=== PATIENT | female | born 1965 | race Caucasian/White ===

== ENCOUNTER 2019-07-06 23:07 | Emergency (ER) | payer BC, SELFPAY ==
[2019-07-06 23:08] VITALS: BP 159/111; PULSE 78; RESP 16; TEMP 36.2; O2SAT 97; BMI 30.9
--- NOTE | 2019-07-06 23:21 | ED_ITS ---
HPI - Wound/Laceration General: Chief Complaint: Wound/Laceration Stated Complaint: head lac Time Seen by Provider: 07/06/19 23:12 Source: patient Mode of arrival: ambulatory Limitations: other (intoxicated) History of Present Illness: HPI narrative: Patient is a 54-year-old female who presents to ED today with complaints of a facial laceration that she sustained after she fell on her front porch. Patient admittedly is intoxicated. She states she was taking her dogs outside when she accidentally fell forward landing on her face. She denies LOC. She is reporting 10 out of 10 pain/headache. Patient's last tetanus is unknown. No other injury sustained during the fall. Onset (ago): hour(s) Location: face Place: home Patient tetanus UTD: No Context: accidental Associated symptoms: Reports other (headache) Review of Systems Eyes: Denies: change in vision, blurry vision, photophobia, floaters or seeing flashes Card: Denies: chest pain Resp: Denies: shortness of breath Musc: Denies: neck pain, back pain or extremity pain Skin/Breast: Reports: other (laceration) Neuro: Reports: headache; Denies: numbness in extremities, weakness in extremities, changes in sensation, lack of coordination or dizziness PFSH ED PFSH: Social History Smoking and tobacco status: current every day smoker Physical Exam Const: COMMON NORMALS: no apparent distress, average body habitus, oriented x3, healthy appearing, alert and well nourished GENERAL APPEARANCE: odor of alcohol detected ORIENTATION/CONSCIOUSNESS: Yes oriented to person, Yes oriented to place and Yes oriented to time OTHER: intoxicated HENMT: COMMON NORMALS: normocephalic, head/scalp atraumatic, hearing grossly normal bilaterally, external ears normal, EAC's normal, TM's normal bilaterally, external nose normal, nasal mucous membranes and turbinates normal, moist oral mucous membranes, oropharynx normal, dentition normal and gingiva normal HEAD & SCALP: normal to inspection, normocephalic and atraumatic FACE & SINUS: other (4.0 cm laceration just above R eyebrow ) NOSE: external nose normal and nasal mucous membranes and turbinates normal EXTERNAL EAR: Yes external ears normal EXTERNAL AUDITORY CANAL: EAC's normal TYMPANIC MEMBRANE: TM's normal bilaterally MOUTH: oral and palatal mucosa normal, lip normal and tongue normal THROAT: posterior oropharynx normal, tonsils normal and uvula midline Eye: COMMON NORMALS: PERRL and EOMs intact bilaterally PUPIL: Yes PERRL OTHER: pt has mild subconjunctival hemorrhage to medial aspect of R eye; no globe injury; EOMs intact/no gaze palsy/entrapment Neck/C-Spine: COMMON NORMALS: full ROM CERVICAL SPINE: No pain with cervical ROM, No cervical spine tenderness and No paracervical muscle tenderness Back/Pelvis: COMMON NORMALS: thoracic and lumbar spine normal to inspection, no thoracic nor lumbar tenderness and thoraco-lumbar ROM normal Extremity: COMMON NORMALS: normal to inspection Neuro: LAMBERT COMA SCALE: document GCS findings [place] coma scale eye opening: Spontaneous Lambert coma scale verbal response: Orientated Lambert coma scale motor response: Obey commands [place] coma scale total score: 15 COMMON NORMALS: oriented x3, moves all extremities, no focal motor deficits, no sensory deficits noted and gait normal SENSORIUM/ORIENTATION: Yes alert, Yes oriented to person, Yes oriented to place and Yes oriented to time Procedures Laceration Laceration 1: Site: face Side (If applicable): right Size (cm): 4.0 Description: linear Depth: simple, single layer Local Anesthetic: lidocaine 1% and with epi Amount of anesthesia used (mL): 2.0 Pre-repair: wound explored and irrigated extensively Skin layer closed with: nylon Size (cm): 4-0 Number of sutures: 6 Technique: simple, interrupted Course Vital Signs: Vital signs: Vital Signs Temperature 97.2 F L 07/06/19 23:08 Pulse Rate 78 07/06/19 23:08 Respiratory Rate 16 07/06/19 23:08 Blood Pressure 159/111 07/06/19 23:08 Pulse Oximetry 97 07/06/19 23:08 MDM - Wound/Laceration Imaging Data^: CT Head: Radiologist's impression: [address] [address] [address] Scan Report Signed Patient: Ely Roy Unit #: [id number] : 1965 Age/Sex: 54 / F ADM Date: 07/06/19 Loc: ER Room/Bed: Attending Dr: Ordering Provider/Ordering MD: Cristina Cruz Date of Service: 07/06/19 Procedure(s): CT head wo con* [id number] Accession Number(s): [id number] Report Number: [id number] PROCEDURE INFORMATION: Exam: CT Head Without Contrast Exam date and time: 07/06/2019 11:36 PM Age: 54 years old Clinical indication: Injury or trauma; Fall; Additional info: Fall/facial laceration TECHNIQUE: Imaging protocol: Computed tomography of the head without contrast. Total DLP: 809.05 mGy-cm Radiation optimization: All CT scans at this facility use at least one of these dose optimization techniques: automated exposure control; mA and/or kV adjustment per patient size (includes targeted exams where dose is matched to clinical indication); or iterative reconstruction. COMPARISON: No relevant prior studies available. FINDINGS: Brain: Normal. No hemorrhage. Unremarkable white matter. No mass effect. Ventricles: Normal. No ventriculomegaly. Bones/joints: Unremarkable. No acute fracture. Sinuses: Visualized sinuses are unremarkable. No fluid levels. Mastoid air cells: Visualized mastoid air cells are well aerated. Soft tissues: Unremarkable. CT/CT head wo con* [id number] IMPRESSION: No acute intracranial abnormality. Radiation Dose CTDIVOL = (mGy): DLP = 809.05 (mGy-cm) Dictated By: Jhonatan Littlejohn MD Signed By: Jhonatan Littlejohn MD Signed Date/Time: 07/07/1942 DD/ CT cervical : Radiologist's impression: [place] [address] CT Scan Report Signed Patient: Ely Roy Unit #: [id number] : 1965 Age/Sex: 54 / F ADM Date: 07/06/19 Loc: ER Room/Bed: Attending Dr: Ordering Provider/Ordering MD: Cristina Cruz Date of Service: 07/06/19 Procedure(s): CT cervical spin wo con* [id number] Accession Number(s): [id number] Report Number: [id number] PROCEDURE INFORMATION: Exam: CT Cervical Spine Without Contrast Exam date and time: 07/06/2019 11:36 PM Age: 54 years old Clinical indication: Injury or trauma; Fall; Initial encounter; Blunt trauma; Additional info: Fall; ETOH intoxication TECHNIQUE: Imaging protocol: Computed tomography images of the cervical spine without contrast. Total DLP: 584.05 mGy-cm Radiation optimization: All CT scans at this facility use at least one of these dose optimization techniques: automated exposure control; mA and/or kV adjustment per patient size (includes targeted exams where dose is matched to clinical indication); or iterative reconstruction. COMPARISON: No relevant prior studies available. FINDINGS: Vertebrae: No acute fracture. Normal alignment. Discs/Spinal canal/Neural foramina: A diffuse loss of disc height is seen within the cervical spine most prominently at the C5-C6 level compatible with degenerative disc disease. Soft tissues: Unremarkable. Lungs: Lung apices are normal. CT/CT cervical spin wo con* [id number] IMPRESSION: There are no acute osseous findings. Radiation Dose CTDIVOL = (mGy): DLP = 584.05 (mGy-cm) Dictated By: Jhonatan Littlejohn MD Signed By: Jhonatan Littlejohn MD Signed Date/Time: 07/07/1944 DD/ CT facial : Radiologist's impression: [place] [address] CT Scan Report Signed Patient: Ely Roy Unit #: [id number] : 1965 Age/Sex: 54 / F ADM Date: 07/06/19 Loc: ER Room/Bed: Attending Dr: Ordering Provider/Ordering MD: Cristina Cruz Date of Service: 07/06/19 Procedure(s): CT facial bones wo con* [id number] Accession Number(s): [id number] Report Number: [id number] PROCEDURE INFORMATION: Exam: CT Maxillofacial Without Contrast Exam date and time: 07/06/2019 11:36 PM Age: 54 years old Clinical indication: Injury or trauma; Fall; Initial encounter; Blunt trauma (contusions or hematomas); Orbit/periorbital; Right; Additional info: R superior orbital laceration; Fall TECHNIQUE: Imaging protocol: Computed tomography images of the face without contrast. Total DLP: 701.05 mGy-cm Radiation optimization: All CT scans at this facility use at least one of these dose optimization techniques: automated exposure control; mA and/or kV adjustment per patient size (includes targeted exams where dose is matched to clinical indication); or iterative reconstruction. COMPARISON: No relevant prior studies available. FINDINGS: Orbits: Orbits are normal. Globes are unremarkable. Bones/joints: No acute fracture. Sinuses: Normal. No air-fluid levels. Soft tissues: There is some soft tissue swelling seen in the right infraorbital and superior orbital regions. CT/CT facial bones wo con* [id number] IMPRESSION: There are no acute osseous findings. Radiation Dose CTDIVOL = (mGy): DLP = 701.05 (mGy-cm) Dictated By: Jhonatan Littlejohn MD Signed By: Jhonatan Littlejohn MD Signed Date/Time: 07/07/1945 DD/ Discharge Plan Discharge Patient Disposition: Home, Self-Care Clinical Impression: Acute alcohol intoxication Qualifiers: Complication of substance-induced condition: uncomplicated Qualified Code(s): F10.920 - Alcohol use, unspecified with intoxication, uncomplicated Fall Qualifiers: Encounter type: initial encounter Qualified Code(s): W19.XXXA - Unspecified fall, initial encounter Facial laceration Qualifiers: Encounter type: initial encounter Qualified Code(s): S01.81XA - Laceration without foreign body of other part of head, initial encounter Condition: Stable Discharge Orders: Discharge Order (Routine); Ordered 07/07/19 Ordered By: Cristina Cruz Referrals: Jose Fernandez MD [Family Provider] - Discharge Diet: Usual diet Discharge Activity: Increase activity as tolerated Patient Instructions: Laceration (ED), Alcohol Intoxication (ED) Activity Restrictions/Additional Instructions: Keep facial wound clean with warm soap and water several times daily. Sutures may be cut out in 5 to 7 days. Monitor for signs of infection such as redness, swelling, drainage, increased pain. Stand Alone Forms: Work/School Release Coding Level of Care Code ED Internal Review And Audit Compliance for Anyag Fwd Exam Detailed
[2019-07-07] MEDS: tetanus-diphtheria tox (adult) 0.5 mL SDV IM (00:03)
[2019-07-07 01:09] VITALS: BP 146/102; PULSE 76; RESP 18; O2SAT 97
== END 2019-07-07 00:55 | disposition home or self-care (01) ==
PROVIDERS: Emergency Provider Physician Assistant; Family Provider Family Medicine
DX: S01.81XA Laceration without foreign body of other part of head, initial encounter (principal); W19.XXXA Unspecified fall, initial encounter; F10.920 Alcohol use, unspecified with intoxication, uncomplicated; Z23 Encounter for immunization
CPT/HCPCS: 12013; 12345; 70450; 70486; 72125; 90471; 90714; 99282; 99283; J2001

== ENCOUNTER 2019-09-28 11:46 | Emergency (ER) | payer BC, SELFPAY ==
[2019-09-28 12:13] VITALS: BP 177/101; PULSE 68; RESP 16; TEMP 36.8; O2SAT 98; BMI 30.9
--- NOTE | 2019-09-28 12:26 | ECG_ITS ---
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 Measurements Intervals [place] Rate: 65 P: 59 [place]: 159 QRS: 74 QRSD: 83 T: 8 QT: 386 QTc: 403 Interpretive Statements SINUS RHYTHM NONSPECIFIC T-WAVE ABNORMALITY No previous ECG available for comparison Electronically Signed On 09-28-2019 13:31:36 CDT by Lupis Floyd M.D. [id number]
--- NOTE | 2019-09-28 13:57 | XR_ITS ---
WS: [id number] PORTABLE CHEST HISTORY: cp COMPARISON: 10/07/2009 Pulmonary hyperinflation with no pneumonia. Normal vasculature. No pleural effusion or pneumothorax. Cardiac size: Normal. Mediastinum/Aorta: Normal mediastinum. No osseous abnormality seen. XR/XR chest 1V portable [id number] IMPRESSION: Chronic emphysema with no pneumonia.
[2019-09-28 14:11] LABS: Troponin(5th) Baseline 6 ng/L (0-10)
[2019-09-28 14:20] LABS: Basophils % 0.3 %; Eosinophils # 0.1 10^3/uL (0.0-0.8); Hemoglobin 14.5 g/dL (11.5-15.3); Lymphocytes # 2.2 10^3/uL (0.8-4.8); Lymphocytes % 35.8 %; Mean Corpuscular Hemoglobin 32.3 pg (28.0-34.0); Mean Platelet Volume 9.9 fL (7.4-10.4); Monocytes # 0.4 10^3/uL (0.2-0.9); Monocytes % 6.2 %; Neutrophils # 3.47 10^3/uL (1.8-7.7); Neutrophils % 56.5 %; Nucleated Red Blood Cells % 0 %; Platelet Count 234 10^3/cmm (130-400); Red Blood Count 4.49 10^6/uL (4.1-5.3); Red Cell Distribution Width 12.8 % (12.1-15.1); White Blood Count 6.1 10^3/uL (4.0-10.0)
--- NOTE | 2019-09-28 14:25 | ED_ITS ---
HPI - Chest Pain General: Chief Complaint: Chest Pain Stated Complaint: CP Time Seen by Provider: 09/28/19 13:32 History of Present Illness: HPI narrative: Patient presents with a 3 day history of burning and squeezing chest pain that radiates to her left arm and down to the elbow. There is minimal associated symptoms. Very minimal shortness of breath, slight nausea and only occasional diaphoresis. Patient has no cardiac history. Patient denies any exacerbating or relieving factors. MD complaint: chest pain, chest heaviness and chest discomfort Onset (ago): day(s) Timing of current episode: constant Prior episodes: No Onset: during rest Pain location: substernal Pain radiation: left arm Severity: moderate Quality: tightness, heaviness and burning Relieving factors: nothing Exacerbating factors: nothing Associated symptoms: Reports diaphoresis, dyspnea and nausea Review of Systems General: Reports: 10 or more systems reviewed and unremarkable except in HPI and below Const: Reports: diaphoresis Resp: Reports: dyspnea GI: Reports: nausea PFSH ED PFSH: Social History Smoking and tobacco status: current every day smoker Physical Exam Const: COMMON NORMALS: no acute distress, healthy appearing and well nourished GENERAL APPEARANCE: cooperative and well developed HENMT: COMMON NORMALS: normocephalic and atraumatic HEAD & SCALP: normal to inspection, normocephalic and atraumatic Eye: GENERAL EYE: appearance normal, both eyes and all related structures Neck/C-Spine: COMMON NORMALS: full ROM, no lymphadenopathy and no meningeal signs GENERAL: Yes normal visual inspection CERVICAL SPINE: Yes cervical ROM normal and Yes normal cervical lordosis Chest: COMMONS NORMALS: normal inspection of the chest and normal palpation of entire chest wall Resp: COMMON NORMALS: normal respiratory effort, clear to auscultation bilaterally and percussion normal AUSCULTATION: clear to auscultation bilaterally PERCUSSION: percussion normal Cardio: COMMON NORMALS: regular rate, regular rhythm, S1 normal heart sound present and S2 normal heart sound present JUGULAR VENOUS DISTENTION: no JVD PALPATION: normal PMI RATE: regular rate RHYTHM: regular rhythm HEART SOUNDS: S1 normal heart sound present and S2 normal heart sound present GI: COMMON NORMALS: Soft to palpation and No hepatosplenomegaly present INSPECTION: Yes normal to inspection PALPATION: Yes Soft to palpation and Yes No hepatosplenomegaly present PERCUSSION: normal to percussion : COMMON NORMALS: Yes no CVA tenderness BLADDER/KIDNEY EXAM: Yes no CVA tenderness Back/Pelvis: COMMON NORMALS: no CVA tenderness, thoracic and lumbar spine normal to inspection and thoraco-lumbar ROM normal Extremity: COMMON NORMALS: normal to inspection, full ROM and capillary refill normal Neuro: MENINGEAL SIGNS: Yes no meningeal signs Skin: COMMON NORMALS: no rashes or lesions noted, no wounds and turgor normal GENERAL SKIN EXAM: no rashes or lesions noted, elasticity normal and turgor normal LESIONS: no lesions RASHES: no rashes TRAUMA: no lacerations or abrasions HAIR: normal NAILS: normal Course Vital Signs: Vital signs: Vital Signs Temperature 98.2 F 09/28/19 12:13 Pulse Rate 65 09/28/19 15:31 Respiratory Rate 18 09/28/19 15:31 Blood Pressure 156/98 09/28/19 15:31 Pulse Oximetry 96 09/28/19 15:31 MDM - Chest Pain Lab Data: Labs: Lab Results 09/28/19 09/28/19 09/28/19 Range/Units 13:48 13:48 13:48 WBC 6.1 (4.0-10.0) 10^3/ uL RBC 4.49 (4.1-5.3) 10^6/u L Hgb 14.5 (11.5-15.3) g/dL Hct 44.0 (37.0-47.0) % MCV 98.0 (81-99) fL MCH 32.3 (28.0-34.0) pg MCHC 33.0 (30.0-36.0) g/dL RDW 12.8 (12.1-15.1) % Plt Count 234 (130-400) 10^3/c mm MPV 9.9 (7.4-10.4) fL Neut % (Auto) 56.5 % Lymph % (Auto) 35.8 % [place] % (Auto) 6.2 % Eos % (Auto) 1.0 % Baso % (Auto) 0.3 % Neut # (Auto) 3.47 (1.8-7.7) 10^3/u L Lymph # (Auto) 2.2 (0.8-4.8) 10^3/u L [place] # (Auto) 0.4 (0.2-0.9) 10^3/u L Eos # (Auto) 0.1 (0.0-0.8) 10^3/u L Baso # (Auto) 0.0 (0.0-0.1) 10^3/u L Nucleated RBC % (a uto) 0 % Nucleated RBCs # 0.0 /100WBC D-Dimer (0-0.59) ug/mIFE U Sodium 138 (136-145) mmol/L Potassium 4.0 (3.5-5.1) mmol/L Chloride 101 (98-107) mmol/L Carbon Dioxide 26 (22-29) mmol/L Anion Gap 15.0 (5-19) BUN 9 (6-20) mg/dL Creatinine 0.6 (0.5-0.9) mg/dL GFR Calculation 103.8 (90-130) mL/min Glucose 100 (65-115) mg/dL Calculated Osmolal ity 282 L (285-295) mOsm/k g Calcium 10.1 (8.5-10.5) mg/dL Total Bilirubin 0.3 (0.15-1.2) mg/dL AST 29 (0-32) U/L ALT 25 (0-33) U/L Alkaline Phosphata se 84 (35-105) IU/L Troponin T Baselin e 6 (0-10) ng/L Troponin T 120 Min [place] (0-10) ng/L NT-Pro-B Natriuret Pep 12 (0-125) pg/mL Total Protein 7.4 (6.6-8.7) g/dL Albumin 4.8 (3.5-5.2) g/dL Globulin 2.6 (1.3-4.6) g/dL 09/28/19 09/28/19 Range/Units 13:48 15:57 WBC (4.0-10.0) 10^3/ uL RBC (4.1-5.3) 10^6/u L Hgb (11.5-15.3) g/dL Hct (37.0-47.0) % MCV (81-99) fL MCH (28.0-34.0) pg MCHC (30.0-36.0) g/dL RDW (12.1-15.1) % Plt Count (130-400) 10^3/c mm MPV (7.4-10.4) fL Neut % (Auto) % Lymph % (Auto) % [place] % (Auto) % Eos % (Auto) % Baso % (Auto) % Neut # (Auto) (1.8-7.7) 10^3/u L Lymph # (Auto) (0.8-4.8) 10^3/u L [place] # (Auto) (0.2-0.9) 10^3/u L Eos # (Auto) (0.0-0.8) 10^3/u L Baso # (Auto) (0.0-0.1) 10^3/u L Nucleated RBC % (a uto) % Nucleated RBCs # /100WBC D-Dimer 0.09 (0-0.59) ug/mIFE U Sodium (136-145) mmol/L Potassium (3.5-5.1) mmol/L Chloride (98-107) mmol/L Carbon Dioxide (22-29) mmol/L Anion Gap (5-19) BUN (6-20) mg/dL Creatinine (0.5-0.9) mg/dL GFR Calculation (90-130) mL/min Glucose (65-115) mg/dL Calculated Osmolal ity (285-295) mOsm/k g Calcium (8.5-10.5) mg/dL Total Bilirubin (0.15-1.2) mg/dL AST (0-32) U/L ALT (0-33) U/L Alkaline Phosphata se (35-105) IU/L Troponin T Baselin e (0-10) ng/L Troponin T 120 Min [place] 6.00 (0-10) ng/L NT-Pro-B Natriuret Pep (0-125) pg/mL Total Protein (6.6-8.7) g/dL Albumin (3.5-5.2) g/dL Globulin (1.3-4.6) g/dL Discharge Plan Discharge Patient Disposition: Home, Self-Care Clinical Impression: Atypical chest pain, Esophagitis Condition: Stable Prescriptions: New Carafate 100 mg/mL suspension 1 gm PO Q6H 7 Days Qty: 280 RF: 0 No Action Tylenol Extra Strength 500 mg Tablet 1,000 mg PO BID RF: 0 Stool Softener 100 mg Capsule 100 mg PO BID RF: 0 Synthroid 200 mcg tablet See Rx Instructions .ROUTE .COMPLEX RF: 0 lisinopril 5 mg tablet 5 mg PO DAILY RF: 0 Nexium 20 mg Capsule,Delayed Release(Dr/Ec) 20 mg PO DAILY RF: 0 metoprolol tartrate 25 mg tablet 12.5 mg PO BID RF: 0 28 mg iron- 800 mcg Tablet 1 tab PO DAILY RF: 0 Psyllium Tab 1 tab PO BID RF: 0 Discharge Orders: Discharge Order (Routine); Ordered 09/28/19 Ordered By: Otf Rubin Referrals: Jose Fernandez MD [Primary Care Provider] - Coding Level of Care Code ED Shank Rander for Chg Fwd Exam Comprehensive
--- NOTE | 2019-09-28 14:26 | ECG_ITS ---
[facility] Test Date: 2019-09-28 Pat Name: Ely Roy Department: Room: Gender: Female [employer]: : 1965 Requested By: Peng Chery Order Number: [id number] Hemant MD: Lupis Floyd M.D. Measurements Intervals [place] Rate: 65 P: 63 [place]: 162 QRS: 70 QRSD: 80 T: 36 QT: 380 QTc: 395 Interpretive Statements SINUS RHYTHM Compared to ECG 09/28/2019 12:08:01 T-wave abnormality no longer present Electronically Signed On 09-28-2019 17:16:09 CDT by Lupis Floyd M.D. [id number]
[2019-09-28 14:41] LABS: Alanine Aminotransferase 25 U/L (0-33); Albumin Level 4.8 g/dL (3.5-5.2); Alkaline Phosphatase 84 IU/L (35-105); Aspartate Amino Transferase 29 U/L (0-32); Blood Urea Nitrogen 9 mg/dL (6-20); Calcium 10.1 mg/dL (8.5-10.5); Carbon Dioxide 26 mmol/L (22-29); Chloride 101 mmol/L (98-107); Globulin 2.6 g/dL (1.3-4.6); Glomerular Filtration Rate 103.8 mL/min (90-130); Glucose 100 mg/dL (65-115); NT Pro B Type Natriuretic Pept 12 pg/mL (0-125); Osmolality Calculated 282 mOsm/kg (285-295); Sodium 138 mmol/L (136-145); Total Bilirubin 0.3 mg/dL (0.15-1.2); Total Protein 7.4 g/dL (6.6-8.7)
[2019-09-28] MEDS: lidocaine 2% viscous 15 ML, aluminum-mag hydrox-simethicon 30 ML, sucralfate oral liq 1 GM PO (15:08)
[2019-09-28] MEDS: acetaminophen 500 mg Tablet 1000 MG PO (15:10)
[2019-09-28 15:23] VITALS: BP 154/90; PULSE 70; RESP 18; O2SAT 97
[2019-09-28 15:31] VITALS: BP 156/98; PULSE 65; RESP 18; O2SAT 96
[2019-09-28 15:33] LABS: D Dimer 0.09 ug/mIFEU (0-0.59)
[2019-09-28 16:16] LABS: Troponin 5 2HR Delta 0 ABS# (0-10)
[2019-09-28 16:35] VITALS: BP 156/98; PULSE 69; RESP 18; O2SAT 96
== END 2019-09-28 16:37 | disposition home or self-care (01) ==
PROVIDERS: Family Medicine; Emergency Provider Family Medicine; PCP Family Medicine
DX: R07.89 Other chest pain (principal); K20.9 Esophagitis, unspecified; F17.210 Nicotine dependence, cigarettes, uncomplicated
CPT/HCPCS: 12345; 36415; 71045; 80053; 83880; 84484; 85025; 85378; 93005; 99282; 99284

== ENCOUNTER 2021-05-05 15:14 | Outpatient (CLI) | payer BC, SELFPAY ==
--- NOTE | 2021-05-05 15:21 | MM_ITS ---
WS: [id number] BILATERAL SCREENING DIGITAL MAMMOGRAM WITH CAD HISTORY: SCREENING COMPARISON: 03/01/2019 and 02/16/2017 Bilateral CC and MLO views submitted. Computer aided detection analyzed. Breast composition: The breasts are heterogeneously dense, which may obscure small masses. No suspici ous masses, microcalcifications or architectural distortion. MM/[place] [id number] IMPRESSION: BI-RADS: 1-Negative FOLLOW UP: 1 Year Follow-up
== END 2021-05-05 15:15 | disposition home or self-care (01) ==
LOC: RADSHAW 15:19
PROVIDERS: PCP Family Medicine; Visit Provider Family Medicine
DX: Z12.31 Encounter for screening mammogram for malignant neoplasm of breast (principal)
CPT/HCPCS: 77067

== ENCOUNTER 2021-05-12 09:22 | Outpatient (CLI) | payer BC, SELFPAY ==
--- NOTE | 2021-05-12 09:36 | CT_ITS ---
WS: [id number] LDCT LUNG CANCER SCREENING TECHNIQUE: Noncontrast CT of the chest with coronal and sagittal reformatted images. CLINICAL INFORMATION: NICOTINE DEPENDENCE COMPARISON: None. DLP: 82.09 mGy.cm DIvol: Mean CTDIvol: 1.60 (mGy) All CT scans at [facility] use at least one of these dose optimization techniques: automat ed exposure control; mA and/or kV adjustment per patient size (includes targeted exams where dose is matched to clinical indication); or iterative reconstruction. FINDINGS: Both lungs are well aerated. No acute pulmonary infiltrates. A few calcified granulomas. No mediastin al or hilar lymphadenopathy. No suspicious pulmonary parenchymal abnormalities. No axillary lymphaden opathy. Coronary calcification. Aortic calcification. Small esophageal hiatal hernia. CT/CT lung screening [id number] IMPRESSION: LUNG-RADS: 2-Benign Appearance or Behavior FOLLOW UP: 12 Month: Continue annual screening with LDCT
== END 2021-05-12 09:23 | disposition home or self-care (01) ==
PROVIDERS: PCP Family Medicine; Visit Provider Family Medicine
DX: Z12.2 Encounter for screening for malignant neoplasm of respiratory organs (principal); F17.210 Nicotine dependence, cigarettes, uncomplicated
CPT/HCPCS: 71271

== ENCOUNTER 2021-09-30 15:06 | Emergency (ER) | payer BC, SELFPAY ==
[2021-09-30 15:36] VITALS: BP 174/105; PULSE 70; RESP 14; TEMP 36.7; O2SAT 97; BMI 32.4
--- NOTE | 2021-09-30 15:44 | XRR_ITS ---
PROCEDURE INFORMATION: Exam: XR Right Ankle Exam date and time: 09/30/2021 3:56 PM Age: 56 years old Clinical indication: Injury or trauma; Other: Rolled foot/ankle; Sprain or strain; Injury details: Right foot and ankle injury. Injury occurred 2 days ago. She says she was walking and accidentally rolled right foot and ankle. Since injury she has not been able to do any weightbearing. Pain improves when she is sitting or at rest and not weightbearing. Any weightbearing causes worsening pain. She has a lot of swelling and ecchymosis of her right foot. ; Additional info: Right ankle injury TECHNIQUE: Imaging protocol: Radiologic exam of the Right ankle. Views: Frontal, lateral, and oblique portable, 3 views. COMPARISON: CR XR foot RT min 3V* [id number] 09/30/2021 3:54 PM FINDINGS: Bones/joints: No definite tibiotalar joint effusion. No acute fracture. A small plantar calcaneal ossified spur is present. Soft tissues: Lateral malleolar and anterior mild soft tissue swelling. XR/XR ankle RT min 3V* [id number] IMPRESSION: 1. Possible lateral ankle ligamentous sprain. Clinical correlation is recommended. 2. No acute bony injury identified. 3. Plantar calcaneal spur.
--- NOTE | 2021-09-30 15:50 | XRR_ITS ---
PROCEDURE INFORMATION: Exam: XR Right Foot Exam date and time: 09/30/2021 3:54 PM Age: 56 years old Clinical indication: Injury or trauma; Other: Rolled foot/ankle; Sprain or strain; Injury details: Right foot and ankle injury. Injury occurred 2 days ago. She says she was walking and accidentally rolled right foot and ankle. Since injury she has not been able to do any weightbearing. Pain improves when she is sitting or at rest and not weightbearing. Any weightbearing causes worsening pain. She has a lot of swelling and ecchymosis of her right foot. ; Additional info: Rolled foot injury TECHNIQUE: Imaging protocol: Radiologic exam of the Right foot. Views: Frontal, lateral, and oblique portable, 3 views. COMPARISON: No relevant prior studies available. FINDINGS: Bones/joints: Nondisplaced extra-articular fracture base of 5th metatarsal. Short 1st proximal phalanx, normal variant. Fifth DIP joint fusion, normal variant. A small plantar calcaneal ossified spur is present. Soft tissues: Lateral proximal forefoot mild soft tissue swelling. XR/XR foot RT min 3V* [id number] IMPRESSION: 1. Acute Gupta fracture base of 5th metatarsal. 2. Plantar calcaneal spur.
--- NOTE | 2021-09-30 15:51 | ED_ITS ---
Documented by User: NELSON Harrell 09/30/21 17:02 HPI - Extremity Problem General: Chief complaint: Extremity Injury, Lower Stated complaint: right foot injury Time Seen by Provider: 09/30/21 15:47 History of Present Illness: Patient is a 56-year-old female comes to the ED with right foot and ankle injury. Injury occurred 2 days ago. She says she was walking and accidentally rolled right foot and ankle. Since injury she has not been able to do any weightbearing. Pain improves when she is sitting or at rest and not weightbearing. Any weightbearing causes worsening pain. She has a lot of swelling and ecchymosis of her right foot. Patient took some Tylenol earlier today to help with pain. Associated symptoms: Deny chest pain, fever(s) or rash Review of Systems 2 Const: Denies: fever(s), chills or fatigue Eyes: Denies: change in vision or eye discomfort ENMT: Denies: throat pain, odynophagia, nasal discharge or nasal congestion Card: Denies: chest pain, palpitations, edema, swelling of feet/ankles, dyspnea on exertion or orthopnea Resp: Denies: dyspnea, productive cough or non-productive cough GI: Denies: abdominal pain, nausea, vomiting, diarrhea, constipation or hematochezia : Denies: flank pain, dysuria or hematuria Musc: Reports: extremity pain (Right foot and ankle) and extremity swelling (Right foot and ankle); Denies: neck pain or back pain Skin/Breast: Denies: rash or new lesions Neuro: Denies: headache(s), numbness in extremities or weakness in extremities [facility] ED PFSH: Medical History No pertinent family history Surgical History No pertinent past surgical history Social History Smoking and tobacco status: current every day smoker Physical Exam Const: COMMON NORMALS: patient oriented x3 and alert GENERAL APPEARANCE: cooperative HENMT: COMMON NORMALS: normocephalic HEAD & SCALP: normocephalic MOUTH: Normal oral and palatal mucosa present THROAT: posterior oropharynx normal and uvula midline Neck/C-Spine: COMMON NORMALS: supple GENERAL: Yes normal visual inspection Resp: COMMON NORMALS: normal respiratory effort, No retractions, No use of accessory muscles and clear to auscultation bilaterally AUSCULTATION: clear to auscultation bilaterally Cardio: COMMON NORMALS: regular rate, regular rhythm, S1 normal heart sound present, S2 normal heart sound present, No gallops present (Cardio), No clicks present (Cardio), No murmurs present (Cardio) and Peripheral pulses 2+ throughout RATE: regular rate RHYTHM: regular rhythm HEART SOUNDS: S1 normal heart sound present and S2 normal heart sound present PERIPHERAL PULSES: Peripheral pulses 2+ throughout GI: COMMON NORMALS: Normal to inspection, nondistended, normoactive bowel sounds present, Soft to palpation, non-tender and no masses PALPATION: Yes Soft to palpation : COMMON NORMALS: Yes no CVA tenderness BLADDER/KIDNEY EXAM: Yes no CVA tenderness Back/Pelvis: COMMON NORMALS: no CVA tenderness Extremity: NARRATIVE EXTREMITY EXAM: Right foot?significant swelling and ecchymosis throughout midfoot. Tenderness over midfoot. No tenderness over lateral or medial malleolus. Limited range of motion in ankle and foot due to pain. Neurovascular tact distally. Neuro: COMMON NORMALS: patient oriented x3 and moves all extremities SENSORIUM/ORIENTATION: Yes alert Skin: GENERAL SKIN EXAM: dry skin Course Vital Signs: Vital signs: Vital Signs Temperature 98.1 F 09/30/21 15:36 Pulse Rate 70 09/30/21 15:36 Respiratory Rate 14 09/30/21 15:36 Blood Pressure 174/105 09/30/21 15:36 Pulse Oximetry 97 09/30/21 15:36 MDM - Extremity (Nontraumatic) Medical Decision Making Patient is a 56-year-old female comes to the ED with right foot and ankle injury. Injury occurred 2 days ago. She says she was walking and accidentally rolled right foot and ankle. Right foot?significant swelling and ecchymosis throughout midfoot. Tenderness over midfoot. No tenderness over lateral or medial malleolus. Limited range of motion in ankle and foot due to pain. Neurovascular tact distally. X-ray of right ankle and right foot showed acute Gupta fracture the base of fifth metatarsal. Patient was put in a posterior leg splint and discharged home with crutches. I placed an order with case management for patient be referred to Dr. Augustin the rug layer for further evaluation. She was discharged home with a prescription for [place] for pain. Return to ED precautions given. Patient understood and agreed with plan. Lab Data Radiology Impressions Ankle X-Ray 09/30/21 15:44 IMPRESSION: 1. Possible lateral ankle ligamentous sprain. Clinical correlation is recommended. 2. No acute bony injury identified. 3. Plantar calcaneal spur. Foot X-Ray 09/30/21 15:50 IMPRESSION: 1. Acute Gupta fracture base of 5th metatarsal. 2. Plantar calcaneal spur. Discharge Plan Discharge Patient Disposition: Home Clinical Impression: Fracture of 5th metatarsal Qualifiers: Encounter type: initial encounter Fracture type: closed Fracture alignment: nondisplaced Laterality: right Qualified Code(s): S92.354A - Nondisplaced fracture of fifth metatarsal bone, right foot, initial encounter for closed fracture Condition: Stable Prescriptions: No Action metformin 500 mg tablet 500 mg PO BID 0RF albuterol sulfate [Ventolin HFA] 90 mcg/actuation HFA aerosol inhaler 2 puff inhalation Q6H PRN (Reason: shortness of breath or wheezing) Qty: 8.5 0RF azithromycin 250 mg tablet See Rx Instructions PO .COMPLEX Qty: 6 0RF Rx Instructions: take 500 mg today (day 1), then 250 mg for 4 days (days 2-5) PO Tylenol Extra Strength 500 mg Tablet 1,000 mg PO BID 0RF Stool Softener 100 mg Capsule 100 mg PO BID 0RF Synthroid 200 mcg tablet See Rx Instructions .ROUTE .COMPLEX 0RF Rx Instructions: 200mcg po daily except on wednesday take 100mcg lisinopril 5 mg tablet 5 mg PO DAILY 0RF Nexium 20 mg Capsule,Delayed Release(Dr/Ec) 20 mg PO DAILY 0RF metoprolol tartrate 25 mg tablet 12.5 mg PO BID 0RF 28 mg iron- 800 mcg Tablet 1 tab PO DAILY 0RF Psyllium Tab 1 tab PO BID 0RF Discharge Orders: Discharge ED (Routine); Ordered 09/30/21 Ordered By: Omi Howard Referrals: Jose Fernandez MD [Primary Care Provider] - Discharge Diet: Regular Discharge Activity: Increase activity as tolerated Patient Instructions: Fractures - Metatarsal Activity Restrictions/Additional Instructions: Follow-up with medical provider as directed. Case management should be contacting you in the next several days set up an appointment with Dr. Augustin the rug layer for further evaluation of foot fracture. Keep splint on and dry and no weightbearing until cleared by Dr. Augustin. Use crutches to help with ambulation. Take medications as prescribed. Return to the ER or your medical provider if condition worsens. Please read and understand discharge instructions. Thank you for choosing [facility] for your healthcare needs today. Please realize this is an emergency room and that we are providing you with a medical screening exam and this may not be complete and all inclusive of all the testing and or work up that you may need to determine your ailment or severity of your illness. It is very important that you follow up as instructed or that you return to the Emergency Department should you have concerns or if your condition changes or worsens in any way. Coding Level of Care Code ED [employer] for [employer] Exam Comprehensive Documented by User: Peng Escobedo DO 10/01/21 06:53 HPI - Extremity Problem General: Chief complaint: Extremity Injury, Lower Stated complaint: right foot injury Time Seen by Provider: 09/30/21 15:47 [facility] ED PFSH: Medical History No pertinent family history Surgical History No pertinent past surgical history Social History Smoking and tobacco status: current every day smoker Course Vital Signs: Vital signs: Vital Signs Temperature 98.1 F 09/30/21 15:36 Pulse Rate 70 09/30/21 15:36 Respiratory Rate 14 09/30/21 15:36 Blood Pressure 174/105 09/30/21 15:36 Pulse Oximetry 97 09/30/21 15:36 MDM - Extremity (Nontraumatic) Medical Decision Making Patient is a 56-year-old female comes to the ED with right foot and ankle injury. Injury occurred 2 days ago. She says she was walking and accidentally rolled right foot and ankle. Right foot?significant swelling and ecchymosis throughout midfoot. Tenderness over midfoot. No tenderness over lateral or medial malleolus. Limited range of motion in ankle and foot due to pain. Neurovascular tact distally. X-ray of right ankle and right foot showed acute Gupta fracture the base of fifth metatarsal. Patient was put in a posterior leg splint and discharged home with crutches. I placed an order with case management for patient be referred to Dr. Augustin the rug layer for further evaluation. She was discharged home with a prescription for [place] for pain. Return to ED precautions given. Patient understood and agreed with plan. Chart reviewed and patient discussed with midlevel. Agree with assessment and plan. Medical Records I reviewed the patient's medical records. Lab Data I reviewed the patient's lab results. Radiology Impressions Ankle X-Ray 09/30/21 15:44 IMPRESSION: 1. Possible lateral ankle ligamentous sprain. Clinical correlation is recommended. 2. No acute bony injury identified. 3. Plantar calcaneal spur. Foot X-Ray 09/30/21 15:50 IMPRESSION: 1. Acute Gupta fracture base of 5th metatarsal. 2. Plantar calcaneal spur. Discharge Plan Discharge Patient Disposition: Home Clinical Impression: Fracture of 5th metatarsal Qualifiers: Encounter type: initial encounter Fracture type: closed Fracture alignment: nondisplaced Laterality: right Qualified Code(s): S92.354A - Nondisplaced fracture of fifth metatarsal bone, right foot, initial encounter for closed fracture Condition: Stable Prescriptions: No Action metformin 500 mg tablet 500 mg PO BID 0RF albuterol sulfate [Ventolin HFA] 90 mcg/actuation HFA aerosol inhaler 2 puff inhalation Q6H PRN (Reason: shortness of breath or wheezing) Qty: 8.5 0RF azithromycin 250 mg tablet See Rx Instructions PO .COMPLEX Qty: 6 0RF Rx Instructions: take 500 mg today (day 1), then 250 mg for 4 days (days 2-5) PO Tylenol Extra Strength 500 mg Tablet 1,000 mg PO BID 0RF Stool Softener 100 mg Capsule 100 mg PO BID 0RF Synthroid 200 mcg tablet See Rx Instructions .ROUTE .COMPLEX 0RF Rx Instructions: 200mcg po daily except on wednesday take 100mcg lisinopril 5 mg tablet 5 mg PO DAILY 0RF Nexium 20 mg Capsule,Delayed Release(Dr/Ec) 20 mg PO DAILY 0RF metoprolol tartrate 25 mg tablet 12.5 mg PO BID 0RF 28 mg iron- 800 mcg Tablet 1 tab PO DAILY 0RF Psyllium Tab 1 tab PO BID 0RF Discharge Orders: Discharge ED (Routine); Ordered 09/30/21 Ordered By: Omi Howard Referrals: Jose Fernandez MD [Primary Care Provider] - Discharge Diet: Regular Discharge Activity: Increase activity as tolerated Patient Instructions: Fractures - Metatarsal Activity Restrictions/Additional Instructions: Follow-up with medical provider as directed. Case management should be contacting you in the next several days set up an appointment with Dr. Augustin the rug layer for further evaluation of foot fracture. Keep splint on and dry and no weightbearing until cleared by Dr. Augustin. Use crutches to help with ambulation. Take medications as prescribed. Return to the ER or your medical provider if condition worsens. Please read and understand discharge instructions. Thank you for choosing [facility] for your healthcare needs today. Please realize this is an emergency room and that we are providing you with a medical screening exam and this may not be complete and all inclusive of all the testing and or work up that you may need to determine your ailment or severity of your illness. It is very important that you follow up as instructed or that you return to the Emergency Department should you have concerns or if your condition changes or worsens in any way. Coding Level of Care Code ED [employer] Delivery [employer] for [employer] Exam Comprehensive
[2021-09-30] MEDS: HYDROcodone-acetaminophen 7.5-325 mg Tablet 1 TAB PO (16:55)
--- NOTE | 2021-10-03 08:02 | DCPLANNER ---
Addendum entered by Mary Carmen Lacey 10/14/21 09:57: Patient had a follow up appointment scheduled for 10.06.[address] Augustin at ortho - patient did attend appointment. Original Note: technical sales support manager had message to schedule a follow up appointment for patient with ortho. technical sales support manager sent patients information to the front office staff at ortho. Patients information will be printed and reviewed. Clinic will call patient with appointment information.
== END 2021-09-30 17:40 | disposition home or self-care (01) ==
PROVIDERS: Emergency Provider Physician Assistant; PCP Family Medicine
DX: S92.354A Nondisplaced fracture of fifth metatarsal bone, right foot, initial encounter for closed fracture (principal); Z79.84 Long term (current) use of oral hypoglycemic drugs; F17.210 Nicotine dependence, cigarettes, uncomplicated; X50.1XXA Overexertion from prolonged static or awkward postures, initial encounter
CPT/HCPCS: 73610; 73630; 99283; E0114

== ENCOUNTER 2021-10-06 15:36 | Outpatient (CLI) | payer BC, SELFPAY | END 2021-10-06 15:37 | disposition home or self-care (01) | LOC: SPT 15:37 | PROVIDERS: PCP Family Medicine; Visit Provider Podiatrist Foot & Ankle Surgery | DX: Z46.89 Encounter for fitting and adjustment of other specified devices (principal); S92.351D Displaced fracture of fifth metatarsal bone, right foot, subsequent encounter for fracture with routine healing; S93.621D Sprain of tarsometatarsal ligament of right foot, subsequent encounter; X58.XXXD Exposure to other specified factors, subsequent encounter | CPT/HCPCS: 97760; L4361 ==

== ENCOUNTER → 2021-10-16 14:33 | Outpatient (BNVA) | payer BC, SELFPAY | PROVIDERS: PCP Family Medicine; Visit Provider Podiatrist Foot & Ankle Surgery | DX: S92.354A Nondisplaced fracture of fifth metatarsal bone, right foot, initial encounter for closed fracture (principal); X58.XXXA Exposure to other specified factors, initial encounter | CPT/HCPCS: 73630 ==

== ENCOUNTER → 2021-11-06 15:07 | Outpatient (BNVA) | payer BC, SELFPAY | PROVIDERS: PCP Family Medicine; Visit Provider Podiatrist Foot & Ankle Surgery | DX: S92.354D Nondisplaced fracture of fifth metatarsal bone, right foot, subsequent encounter for fracture with routine healing (principal); X58.XXXD Exposure to other specified factors, subsequent encounter | CPT/HCPCS: 73630 ==

== ENCOUNTER → 2021-11-20 15:15 | Outpatient (BNVA) | payer BC, SELFPAY | PROVIDERS: PCP Family Medicine; Visit Provider Podiatrist Foot & Ankle Surgery | DX: S92.354D Nondisplaced fracture of fifth metatarsal bone, right foot, subsequent encounter for fracture with routine healing; X58.XXXD Exposure to other specified factors, subsequent encounter; E11.8 Type 2 diabetes mellitus with unspecified complications; Z79.84 Long term (current) use of oral hypoglycemic drugs | CPT/HCPCS: 73630 ==

== ENCOUNTER → 2021-12-08 15:22 | Outpatient (BNVA) | payer BC, SELFPAY | PROVIDERS: PCP Family Medicine; Visit Provider Podiatrist Foot & Ankle Surgery | DX: W01.0XXA Fall on same level from slipping, tripping and stumbling without subsequent striking against object, initial encounter (principal); M65.9 Synovitis and tenosynovitis, unspecified; S92.354D Nondisplaced fracture of fifth metatarsal bone, right foot, subsequent encounter for fracture with routine healing | CPT/HCPCS: 73630 ==

== ENCOUNTER → 2021-12-29 15:12 | Outpatient (BNVA) | payer BC, SELFPAY | PROVIDERS: PCP Family Medicine; Visit Provider Podiatrist Foot & Ankle Surgery | DX: X58.XXXD Exposure to other specified factors, subsequent encounter (principal); S92.354D Nondisplaced fracture of fifth metatarsal bone, right foot, subsequent encounter for fracture with routine healing; G57.61 Lesion of plantar nerve, right lower limb | CPT/HCPCS: 73630 ==

== ENCOUNTER 2022-03-04 11:35 | Outpatient (CLI) | payer BC, SELFPAY ==
--- NOTE | 2022-03-04 12:00 | US_ITS ---
WS: [id number] INDICATION: Nielsen's neuroma TECHNIQUE: Ultrasound soft tissue foot area of concern. FINDINGS: Ultrasound soft tissue area of concern in the 1st 2nd 3rd and 4th interspaces. Normal under lying soft tissues. No evidence of Nielsen's neuroma or soft tissue mass. US/US soft tissue/extremity [id number] IMPRESSION: No evidence of Nielsen's neuroma.
== END 2022-03-04 11:36 | disposition home or self-care (01) ==
PROVIDERS: PCP Family Medicine; Visit Provider Podiatrist Foot & Ankle Surgery
DX: G57.61 Lesion of plantar nerve, right lower limb (principal)
CPT/HCPCS: 76882

== ENCOUNTER 2022-05-22 16:24 | Outpatient (CLI) | payer BC, SELFPAY ==
--- NOTE | 2022-05-22 | CT_ITS ---
WS: [id number] LDCT LUNG CANCER SCREENING TECHNIQUE: Noncontrast CT of the chest with coronal and sagittal reformatted images. CLINICAL INFORMATION: NICOTINE DEPENDENCE COMPARISON: CT May 12, 2021 DLP: 81.01 mGy.cm DIvol: Mean CTDIvol: 1.60 (mGy) All CT scans at [facility] use at least one of these dose optimization techniques: automat ed exposure control; mA and/or kV adjustment per patient size (includes targeted exams where dose is matched to clinical indication); or iterative reconstruction. FINDINGS: Tiny noncalcified nodule in the RIGHT fissure and RIGHT lower lobe. Lungs are well aerated. No acute pulmonary infiltrates. A few calcified granulomas. No mediastinal or hilar lymphadenopathy. . No axillary lymphadenopathy. Coronary calcification. Aortic calcification. Small esophageal hiatal hernia. Adrenal glands are normal. CT/CT lung screening [id number] IMPRESSION: LUNG-RADS: 2-Benign Appearance or Behavior FOLLOW UP: 12 Month: Continue annual screening with LDCT
== END 2022-05-22 16:25 | disposition home or self-care (01) ==
LOC: RAD 16:28
PROVIDERS: PCP Family Medicine; Visit Provider Family Medicine
DX: Z12.2 Encounter for screening for malignant neoplasm of respiratory organs (principal); Z87.891 Personal history of nicotine dependence
CPT/HCPCS: 71271

== ENCOUNTER 2022-06-01 12:00 | Outpatient (CLI) | payer BC, SELFPAY | END 2022-06-01 12:01 | disposition home or self-care (01) | LOC: SLEEP 06-02 10:41 | PROVIDERS: PCP Family Medicine; Visit Provider Family Medicine | DX: G47.10 Hypersomnia, unspecified (principal) | CPT/HCPCS: G0399 ==

== ENCOUNTER 2022-06-19 15:31 | Outpatient (CLI) | payer BC, SELFPAY ==
--- NOTE | 2022-06-19 15:40 | MM_ITS ---
WS: [id number] BILATERAL 3D TOMOSYNTHESIS DIGITAL SCREENING MAMMOGRAPHY WITH CAD CLINICAL INFORMATION: SCREENING HISTORY: Screening mammogram. No current complaints. COMPARISON: 2021 TECHNIQUE: Bilateral CC and MLO views. FINDINGS: The breasts are composed of heterogeneous fibroglandular density tissue, which can limit the detectio n of small underlying mass lesions. No suspicious mass, asymmetry, calcifications, or architectural d istortion. No evidence of malignancy. Vascular calcification. A few incidental punctate calcification s. MM/[place] [id number] IMPRESSION: BI-RADS: 2-Benign FOLLOW UP: 1 Year Follow-up Recommend return to annual screening mammography.
== END 2022-06-19 15:32 | disposition home or self-care (01) ==
LOC: RAD 15:34
PROVIDERS: PCP Family Medicine; Visit Provider Family Medicine
DX: Z12.31 Encounter for screening mammogram for malignant neoplasm of breast (principal)
CPT/HCPCS: 77063; 77067

== ENCOUNTER 2022-08-14 19:06 | Emergency (ER) | payer BC, SELFPAY ==
--- NOTE | 2022-08-14 19:13 | XRR_ITS ---
PROCEDURE INFORMATION: Exam: XR Chest Exam date and time: 08/14/2022 7:44 PM Age: 57 years old Clinical indication: Pain; Chest pressure; Additional info: Cp TECHNIQUE: Imaging protocol: Radiologic exam of the chest. Views: 1 view. COMPARISON: CT lung screening [id number] 05/22/2022 4:47 PM FINDINGS: Lungs: Unremarkable. No consolidation. Pleural spaces: Unremarkable. No pleural effusion. No pneumothorax. Heart/Mediastinum: Unremarkable. No cardiomegaly. Bones/joints: Unremarkable. Other findings: Punctate radiodensities over the left upper thorax may be external to the patient, please correlate clinically. XR/XR chest 1V portable [id number] IMPRESSION: Negative for infiltrate
--- NOTE | 2022-08-14 19:13 | ECG_ITS ---
[facility] Test Date: 2022-08-14 Pat Name: Ely Roy Department: Room: Gender: Female Highway Patrol Officer: : 1965 Requested By: Philipp Franks Order Number: [id number] Hemant MD: Jose Cruz M.D. Measurements Intervals [place] Rate: 72 P: 58 AK: 148 QRS: 66 QRSD: 82 T: 49 QT: 365 QTc: 402 Interpretive Statements SINUS RHYTHM MINIMAL ST DEPRESSION [0.025+ mV ST DEPRESSION] Compared to ECG 09/28/2019 15:25:54 ST (T wave) deviation now present Electronically Signed On 08-15-2022 6:52:14 CDT by Jose Cruz M.D. [id number]
[2022-08-14 19:18] VITALS: BP 198/94; PULSE 70; RESP 18; TEMP 36.7; O2SAT 100; BMI 34.3
--- NOTE | 2022-08-14 19:52 | ED_ITS ---
HPI - Chest Pain General: Chief Complaint: Chest Pain Stated Complaint: Chest/back pain, sob Time Seen by Provider: 08/14/22 19:43 Source: patient Mode of arrival: ambulatory Limitations: no limitations History of Present Illness: This 57-year-old female presents to the ER with chest pain that started around 3:30 PM. She bent over when the pain started and since onset, pain has been constant and radiates from the lower sternal region into her back. Patient currently rates the pain at 8 out of 10. She has never had pain like this before. she describes the pain as sharp and burning in nature. She has nausea but no vomiting. She denies fever. There is some shortness of breath associated with the pain. Patient took Tylenol around 6:00 with no relief. Associated symptoms: Reports nausea Review of Systems Const: Denies: chills, body aches or change in appetite Eyes: Denies: change in vision or eye discharge ENMT: Denies: throat pain or dental pain Card: Reports: chest pain and dyspnea on exertion; Denies: lightheadedness GI: Reports: nausea; Denies: diarrhea : Denies: dysuria Musc: Denies: neck pain or back pain Neuro: Denies: headache(s) or weakness in extremities Psych: Denies: depression Ben/Lymph: Denies: easy bruising All/Imm: Denies: urticaria, tongue swelling or facial swelling PFSH ED PFSH: Medical History No pertinent family history Surgical History No pertinent past surgical history Social History Smoking and tobacco status: current every day smoker Physical Exam Const: COMMON NORMALS: no acute distress, patient oriented x3, no limitations and alert HENMT: COMMON NORMALS: normocephalic HEAD & SCALP: normocephalic Eye: COMMON NORMALS: EOMs intact bilaterally Neck/C-Spine: COMMON NORMALS: full ROM and supple Chest: COMMONS NORMALS: normal inspection of the chest Resp: COMMON NORMALS: normal respiratory effort, No retractions, No use of accessory muscles and clear to auscultation bilaterally AUSCULTATION: clear to auscultation bilaterally Cardio: COMMON NORMALS: regular rate, regular rhythm and No murmurs present (Cardio) RATE: regular rate RHYTHM: regular rhythm GI: COMMON NORMALS: Normal to inspection, nondistended, normoactive bowel sounds present and non-tender : COMMON NORMALS: Yes no CVA tenderness BLADDER/KIDNEY EXAM: Yes no CVA tenderness Back/Pelvis: COMMON NORMALS: no CVA tenderness and no thoracic nor lumbar tenderness Extremity: GENERAL: Yes normal exam except as noted Neuro: COMMON NORMALS: patient oriented x3 and no focal motor deficits SENSORIUM/ORIENTATION: Yes alert Psych: COMMON NORMALS: mental status grossly normal and cooperative Course Reevaluation(s): Reevaluation #1: Patient reevaluated. She notes that after receiving 3 doses of nitroglycerin, she continues to have chest pain. GI cocktail and IV morphine will be tried. Will order CT chest to rule out any acute intrathoracic process like pulmonary e mbolism oraortic dissection. Vital Signs: Vital signs: Vital Signs Temperature 98.1 F 08/14/22 19:18 Pulse Rate 66 08/14/22 21:07 Respiratory Rate 16 08/14/22 21:07 Blood Pressure 155/73 08/14/22 21:07 Pulse Oximetry 98 08/14/22 21:07 Oxygen Delivery Me thod Room Air 08/14/22 19:18 MDM - Chest Pain Medical Decision Making Medical decision making: Patient presents to the ER with chest pain that had started few hours prior to presentation. Initial troponin and repeat troponin 2 hours later were both negative with a delta of 0. Because she continued to complain of pain, CTA chest PE protocol was done to rule out pulmonary embolism. It is negative for pul monary embolism or any acute intrathoracic process. At this time, differentials like aortic dissection, cardiac tamponade, pulmonary embolism and ACS are highly unlikely. Patient will be treated symptomatically. However, given her age, she was advised to get an outpatient stress test through her primary care provider. Reasons to return were discussed. Patient verbalized understanding and agrees with the plan. Lab Data 08/14/22 20:05 08/14/22 20:05 Radiology Impressions Chest X-Ray 08/14/22 19:13 IMPRESSION: Negative for infiltrate Chest CTA 08/14/22 20:45 IMPRESSION: 1. Negative for pulmonary embolus. 2. Coronary artery atherosclerotic calcifications. 3. Cardiomegaly. 4. Hepatic steatosis. 5. Scattered prominent mediastinal lymph nodes measuring up to 13 mm, nonspecific. 6. Patchy bilateral dependent ground-glass airspace atelectasis versus infiltrate. 7. Mild emphysematous changes. COMMENTS: In the absence of a history or active diagnosis of lung cancer, it is recommended that this patient with emphysema be evaluated for enrollment in a low dose CT lung cancer screening program. Laboratory Results WBC 9.3 10^3/uL (4.0-10.0) 08/14/22 20:05 RBC 3.87 10^6/uL (4.1-5.3) L 08/14/22 20:05 Hgb 12.8 g/dL (11.5-15.3) 08/14/22 20:05 Hct 37.4 % (37.0-47.0) 08/14/22 20:05 MCV 96.6 fl (81-99) 08/14/22 20:05 MCH 33.1 pg (28.0-34.0) 08/14/22 20:05 MCHC 34.2 g/dL (30.0-36.0) 08/14/22 20:05 RDW 11.9 % (12.1-15.1) L 08/14/22 20:05 Plt Count 245 10^3/cmm (130-400) 08/14/22 20:05 MPV 9.9 fL (7.4-10.4) 08/14/22 20:05 Neut % (Auto) 78.6 % 08/14/22 20:05 Lymph % (Auto) 14.9 % 08/14/22 20:05 [place] % (Auto) 4.9 % 08/14/22 20:05 Eos % (Auto) 1.0 % 08/14/22 20:05 Baso % (Auto) 0.3 % 08/14/22 20:05 Neut # (Auto) 7.29 10^3/uL (1.8-7.7) 08/14/22 20:05 Lymph # (Auto) 1.4 10^3/uL (0.8-4.8) 08/14/22 20:05 [place] # (Auto) 0.5 10^3/uL (0.2-0.9) 08/14/22 20:05 Eos # (Auto) 0.1 10^3/uL (0.0-0.8) 08/14/22 20:05 Baso # (Auto) 0.0 10^3/uL (0.0-0.1) 08/14/22 20:05 Nucleated RBC % (auto) 0 % 08/14/22 20:05 Nucleated RBCs # 0.0 /100WBC 08/14/22 20:05 PT 12.90 SECONDS (12.1-14.9) 08/14/22 20:05 INR 0.94 (0.8-1.2) 08/14/22 20:05 D-Dimer 0.73 ug/mIFEU (0-0.59) H 08/14/22 21:00 Sodium 132 mmol/L (136-145) L 08/14/22 20:05 Potassium 4.4 mmol/L (3.5-5.1) 08/14/22 20:05 Chloride 95 mmol/L (98-107) L 08/14/22 20:05 Carbon Dioxide 19 mmol/L (22-29) L 08/14/22 20:05 Anion Gap 22.4 (5-19) H 08/14/22 20:05 BUN 10 mg/dL (6-20) 08/14/22 20:05 Creatinine 0.7 mg/dL (0.5-0.9) 08/14/22 20:05 GFR Calculation 85.9 mL/min (90-130) L 08/14/22 20:05 Glucose 112 mg/dL (65-115) 08/14/22 20:05 Calculated Osmolality 274 mOsm/kg (285-295) L 08/14/22 20:05 Calcium 9.1 mg/dL (8.5-10.5) 08/14/22 20:05 Total Bilirubin 0.3 mg/dL (0.15-1.2) 08/14/22 20:05 AST 36 U/L (0-32) H 08/14/22 20:05 ALT 31 U/L (0-33) 08/14/22 20:05 Alkaline Phosphatase 101 U/L (35-105) 08/14/22 20:05 Troponin T Baseline 6 ng/L (0-10) 08/14/22 20:05 Troponin T 120 Minute 6.00 ng/L (0-10) 08/14/22 21:45 Delta Troponin T 0 ABS# (0-10) 08/14/22 21:45 NT-Pro-B Natriuret Pep 96 pg/mL (0-125) 08/14/22 20:05 Total Protein 7.2 g/dL (6.6-8.7) 08/14/22 20:05 Albumin 4.2 g/dL (3.5-5.2) 08/14/22 20:05 Globulin 3.0 g/dL (1.3-4.6) 08/14/22 20:05 EKG Data EKG 1: Interpretation: Sinus bradycardia, rate of 56, normal axis, normal intervals, normal QRS, no STEMI. Discharge Plan Discharge Patient Disposition: Home Clinical Impression: Atypical chest pain Condition: Stable Prescriptions: New tramadol 50 mg tablet 50 mg PO TID PRN (Reason: pain) Qty: 20 0RF No Action metformin 500 mg tablet 500 mg PO BID albuterol sulfate [Ventolin HFA] 90 mcg/actuation HFA aerosol inhaler 2 puff inhalation Q6H PRN (Reason: shortness of breath or wheezing) Qty: 8.5 0RF amoxicillin-pot clavulanate 875-125 mg tablet 1 tab PO BID 7 Days Qty: 14 0RF prednisone 10 mg tablet 10 mg PO DAILY 12 Days Qty: 42 0RF Rx Instructions: Provided directions to patient- 12 day taper Tylenol Extra Strength 500 mg Tablet 1,000 mg PO BID Stool Softener 100 mg Capsule 100 mg PO BID Synthroid 200 mcg tablet See Rx Instructions .ROUTE .COMPLEX Rx Instructions: 200mcg po daily except on wednesday take 100mcg lisinopril 5 mg tablet 5 mg PO DAILY Nexium 20 mg Capsule,Delayed Release(Dr/Ec) 20 mg PO DAILY metoprolol tartrate 25 mg tablet 12.5 mg PO BID 28 mg iron- 800 mcg Tablet 1 tab PO DAILY Psyllium Tab 1 tab PO BID Discharge Orders: Discharge ED (Routine); Ordered 08/14/22 Ordered By: Lidia Hernandez Referrals: Jose Fernandez MD [Primary Care Provider] - Patient Instructions: Opioid Safety, Pain Management Activity Restrictions/Additional Instructions: Take tramadol as needed for pain. Follow-up with your primary care physician in 2 to 3 days for reevaluation. He will set you up for an outpatient stress test. Return if you develop any new or worsening symptoms. Coding Level of Care Code ED [employer] Consultant for Norma Genao
[2022-08-14 20:10] VITALS: BP 187/90; PULSE 63; RESP 16; O2SAT 92
[2022-08-14] MEDS: nitroglycerin 0.4 mg sublingual Tablet SUBLINGUAL ×3 (20:10→20:33)
[2022-08-14 20:13] LABS: Basophils % 0.3 %; Eosinophils # 0.1 10^3/uL (0.0-0.8); Hematocrit 37.4 % (37.0-47.0); Hemoglobin 12.8 g/dL (11.5-15.3); Lymphocytes # 1.4 10^3/uL (0.8-4.8); Lymphocytes % 14.9 %; Mean Corpuscular HGB Conc 34.2 g/dL (30.0-36.0); Mean Corpuscular Hemoglobin 33.1 pg (28.0-34.0); Mean Corpuscular Volume 96.6 fl (81-99); Mean Platelet Volume 9.9 fL (7.4-10.4); Monocytes # 0.5 10^3/uL (0.2-0.9); Monocytes % 4.9 %; Neutrophils # 7.29 10^3/uL (1.8-7.7); Neutrophils % 78.6 %; Nucleated Red Blood Cells % 0 %; Platelet Count 245 10^3/cmm (130-400); Red Blood Count 3.87 10^6/uL (4.1-5.3); Red Cell Distribution Width 11.9 % (12.1-15.1); White Blood Count 9.3 10^3/uL (4.0-10.0)
[2022-08-14 20:24] LABS: INR 0.94 (0.8-1.2)
[2022-08-14 20:34] VITALS: BP 118/79; PULSE 60; RESP 16; O2SAT 99
[2022-08-14 20:37] LABS: Troponin(5th) Baseline 6 ng/L (0-10)
[2022-08-14 20:41] LABS: Albumin Level 4.2 g/dL (3.5-5.2); Alkaline Phosphatase 101 U/L (35-105); Blood Urea Nitrogen 10 mg/dL (6-20); Calcium 9.1 mg/dL (8.5-10.5); Carbon Dioxide 19 mmol/L (22-29); Chloride 95 mmol/L (98-107); Glomerular Filtration Rate 85.9 mL/min (90-130); Glucose 112 mg/dL (65-115); NT Pro B Type Natriuretic Pept 96 pg/mL (0-125); Osmolality Calculated 274 mOsm/kg (285-295); Sodium 132 mmol/L (136-145); Total Bilirubin 0.3 mg/dL (0.15-1.2); Total Protein 7.2 g/dL (6.6-8.7)
--- NOTE | 2022-08-14 20:45 | CTR_ITS ---
PROCEDURE INFORMATION: Exam: CTA Chest With Contrast Exam date and time: 08/14/2022 9:58 PM Age: 57 years old Clinical indication: Pain; Chest pressure; Additional info: Chest pain TECHNIQUE: Imaging protocol: Computed tomographic angiography of the chest with contrast. Exam focused on the arteries. 3D rendering (Not supervised by radiologist): MIP and/or 3D reconstructed images were created by the technologist. Radiation optimization: All CT scans at this facility use at least one of these dose optimization techniques: automated exposure control; mA and/or kV adjustment per patient size (includes targeted exams where dose is matched to clinical indication); or iterative reconstruction. Contrast material: OMNI 350; Contrast volume: 100 ml; Contrast route: INTRAVENOUS (IV); REPORTING DATA: Count of CT and Cardiac NM exams in prior 12 months: This patient has received [address] and 0 known cardiac nuclear medicine studies in the 12 months prior to the current study. COMPARISON: CT lung screening [id number] 05/22/2022 4:47 PM RADIATION DOSE METRICS: Total DLP (mGy-cm): 384.24 FINDINGS: Pulmonary arteries: Normal. No pulmonary emboli. Aorta: Unremarkable. No aortic aneurysm. No aortic dissection. Lungs: Patchy bilateral dependent ground-glass airspace atelectasis versus infiltrate. Mild emphysematous changes. Pleural spaces: Unremarkable. No pneumothorax. No pleural effusion. Heart: Cardiomegaly. Coronary arteries: Coronary artery atherosclerotic calcifications. Lymph nodes: Scattered prominent mediastinal lymph nodes measuring up to 13 mm, nonspecific. Liver: Hepatic steatosis. Bones/joints: Unremarkable. No acute fracture. Soft tissues: Unremarkable. CT/CT angio chest PE protcl [id number] IMPRESSION: 1. Negative for pulmonary embolus. 2. Coronary artery atherosclerotic calcifications. 3. Cardiomegaly. 4. Hepatic steatosis. 5. Scattered prominent mediastinal lymph nodes measuring up to 13 mm, nonspecific. 6. Patchy bilateral dependent ground-glass airspace atelectasis versus infiltrate. 7. Mild emphysematous changes. COMMENTS: In the absence of a history or active diagnosis of lung cancer, it is recommended that this patient with emphysema be evaluated for enrollment in a low dose CT lung cancer screening program.
[2022-08-14 20:57] LABS: Alanine Aminotransferase 31 U/L (0-33); Anion Gap 22.4 (5-19); Aspartate Amino Transferase 36 U/L (0-32); Potassium 4.4 mmol/L (3.5-5.1)
[2022-08-14 21:03] VITALS: RESP 16
[2022-08-14] MEDS: lidocaine 2% viscous 15 ML, aluminum-mag hydrox-simethicon 30 ML, sucralfate oral liq 1 GM PO (21:03)
[2022-08-14] MEDS: morphine 4 mg/mL SDV 1 mL IVP ×2 (21:03→22:55)
[2022-08-14 21:07] VITALS: BP 155/73; PULSE 66; RESP 16; O2SAT 98
--- NOTE | 2022-08-14 21:13 | ECG_ITS ---
[facility] Test Date: 2022-08-14 Pat Name: Ely Roy Department: Room: Gender: Female [employer] Bumper: : 1965 Requested By: Philipp Franks Order Number: [id number] Hemant MD: Jose Cruz M.D. Measurements Intervals Carver Rate: 56 P: 52 CA: 152 QRS: 58 QRSD: 85 T: 62 QT: 426 QTc: 412 Interpretive Statements SINUS BRADYCARDIA MODERATE T-WAVE ABNORMALITY, CONSIDER ANTERIOR ISCHEMIA [-0.1+ mV T-WAVE IN V3/V4] Compared to ECG 08/14/2022 19:16:55 T-wave abnormality now present Possible ischemia now present Sinus rhythm no longer present ST (T wave) deviation no longer present Electronically Signed On 08-15-2022 6:56:52 CDT by Jose Cruz M.D. [email or web address]
[2022-08-14 21:27] LABS: D Dimer 0.73 ug/mIFEU (0-0.59)
[2022-08-14] MEDS: diphenhydrAMINE 50 mg/mL SDV 1mL IVP (21:48)
[2022-08-14] MEDS: iohexol 350 mg/mL 500 mL Btl (per mL) IV (22:01)
[2022-08-14 22:32] LABS: Troponin 5 2HR Delta 0 ABS# (0-10)
[2022-08-14 23:40] VITALS: BP 154/82; PULSE 67; RESP 16; O2SAT 95
== END 2022-08-14 23:41 | disposition home or self-care (01) ==
PROVIDERS: Emergency Medicine; Emergency Provider Family Medicine; PCP Family Medicine
DX: R07.89 Other chest pain (principal); Z79.84 Long term (current) use of oral hypoglycemic drugs; F17.210 Nicotine dependence, cigarettes, uncomplicated
CPT/HCPCS: 36415; 71045; 71275; 80053; 83880; 84484; 85025; 85378; 85610; 93005; 96374; 96376; 99285; J1200; J2270; J2920; Q9967

== ENCOUNTER → 2023-01-13 08:07 | Outpatient (BNVA) | payer BC, SELFPAY | PROVIDERS: PCP Family Medicine; Visit Provider Podiatrist Foot & Ankle Surgery | DX: M79.672 Pain in left foot (principal); M72.2 Plantar fascial fibromatosis | CPT/HCPCS: 73630 ==

== ENCOUNTER 2023-07-20 08:44 | Outpatient (CLI) | payer BC, SELFPAY ==
--- NOTE | 2023-07-20 08:53 | MM_ITS ---
WS: [id number] BILATERAL SCREENING DIGITAL TOMOSYNTHESIS MAMMOGRAM WITH CAD HISTORY: SCREENING COMPARISON: 06/19/2022 and 05/05/2021 Bilateral CC and MLO views with tomosynthesis and synthetic mammography submitted. Computer aided det ection analyzed. Breast composition: The breasts are heterogeneously dense, which may obscure small masses. No suspici ous masses, microcalcifications or architectural distortion. MM/[place] [id number] IMPRESSION: BI-RADS: 2-Benign FOLLOW UP: 1 Year Follow-up
--- NOTE | 2023-07-20 08:53 | CT_ITS ---
WS: [id number] LDCT LUNG CANCER SCREENING HISTORY: NICOTINE DEPENDENCE,CIGARETTES TECHNIQUE: Axial imaging performed from the apices to 1 cm below the costophrenic angles. Coronal and sagittal reformats are submitted with axial MIP series. All CT scans at [facility] use at least one of these dose optimization techniques: automated exposure control; mA and/or kV adjustment per patient size (includes targeted exams where dose is matched to clinical indication); or iterativ e reconstruction. DLP: 93.10 mGy.cm DIvol: Mean CTDIvol: 1.80 (mGy) COMPARISON: 08/14/2022 Diagnostic quality: Satisfactory Lungs: Emphysema. Micronodule at the RIGHT apex. Benign granuloma at the LEFT lung base. No mass or p neumonia. Heart: Normal size heart with no pericardial effusion.. Coronary artery calcification. Other findings: Mild atherosclerosis thoracic aorta. No mediastinal or hilar adenopathy. Small hiatal hernia. Hepatic steatosis. No adrenal mass. CT/CT lung screening [id number] IMPRESSION: LUNG-RADS: 2-Benign Appearance or Behavior FOLLOW UP: 12 Month: Continue annual screening with LDCT OTHER FINDINGS (S MODIFIER): None.
== END 2023-07-20 08:45 | disposition home or self-care (01) ==
PROVIDERS: PCP Family Medicine; Visit Provider Family Medicine
DX: Z12.31 Encounter for screening mammogram for malignant neoplasm of breast (principal); Z12.2 Encounter for screening for malignant neoplasm of respiratory organs; F17.210 Nicotine dependence, cigarettes, uncomplicated; R92.333 Mammographic heterogeneous density, bilateral breasts; J43.9 Emphysema, unspecified; K44.9 Diaphragmatic hernia without obstruction or gangrene; I70.0 Atherosclerosis of aorta; K76.0 Fatty (change of) liver, not elsewhere classified
CPT/HCPCS: 71271; 77063; 77067

== ENCOUNTER 2024-07-20 10:13 | Outpatient (CLI) | payer BC, SELFPAY ==
--- NOTE | 2024-07-20 10:15 | MM_ITS ---
WS: [id number] BILATERAL 3D TOMOSYNTHESIS DIGITAL SCREENING MAMMOGRAPHY WITH CAD CLINICAL INFORMATION: SCREENING HISTORY: Screening mammogram. No current complaints. COMPARISON: 2023 TECHNIQUE: Bilateral CC and MLO views. FINDINGS: The breasts are composed of heterogeneous fibroglandular density tissue, which can limit the detection of small underlying mass lesions. No suspicious mass, asymmetry, calcifications, or architectural distortion. No evidence of malignancy. MM/MM scr tomosynthesis [id number] IMPRESSION: DENSITY: The breasts are heterogeneously dense, which may obscure small masses. BI-RADS: 1 - Negative FOLLOW UP: 1 Year Follow-up Recommend return to annual screening mammography.
== END 2024-07-20 10:14 | disposition home or self-care (01) ==
LOC: RAD 10:14
PROVIDERS: PCP Family Medicine; Visit Provider Family Medicine
DX: Z12.31 Encounter for screening mammogram for malignant neoplasm of breast (principal); R92.333 Mammographic heterogeneous density, bilateral breasts
CPT/HCPCS: 77063; 77067

== ENCOUNTER 2024-08-07 15:21 | Outpatient (CLI) | payer BC, SELFPAY ==
--- NOTE | 2024-08-07 15:28 | CT_ITS ---
WS: [id number] LDCT LUNG CANCER SCREENING TECHNIQUE: Noncontrast CT of the chest with coronal and sagittal reformatted images. CLINICAL INFORMATION: HX OF TOBACCO USE COMPARISON: 07/20/2023 DLP: 85.09 mGy.cm DIvol: Mean CTDIvol: 1.80 (mGy) All CT scans at [facility] use at least one of these dose optimization techniques: automated exposure control; mA and/or kV adjustment per patient size (includes targeted exams where dose is matched to clinical indication); or iterative reconstruction. FINDINGS: Chronic emphysematous changes. A few tiny micronodules in the lung apices and both upper lobes. Calcified granulomas. No new suspicious pulmonary parenchymal abnormalities. Fibrosis in the lung apices. Tiny nodule LEFT lower lobe. Aortic calcification. Coronary calcification. Normal caliber thoracic aorta. No mediastinal or hilar lymphadenopathy. Small esophageal hiatal hernia. Fatty liver. CT/CT lung screening [id number] IMPRESSION: LUNG-RADS: 2-Benign Appearance or Behavior FOLLOW UP: 12 Month: Continue annual screening with LDCT
== END 2024-08-07 15:22 | disposition home or self-care (01) ==
PROVIDERS: PCP Family Medicine; Visit Provider Family Medicine
DX: Z12.2 Encounter for screening for malignant neoplasm of respiratory organs (principal); Z87.891 Personal history of nicotine dependence; J43.8 Other emphysema; J84.10 Pulmonary fibrosis, unspecified; I70.0 Atherosclerosis of aorta; I25.10 Atherosclerotic heart disease of native coronary artery without angina pectoris; K44.9 Diaphragmatic hernia without obstruction or gangrene; K76.0 Fatty (change of) liver, not elsewhere classified
CPT/HCPCS: 71271

== ENCOUNTER 2025-01-22 15:02 | Outpatient (CLI) | payer BC, SELFPAY ==
--- NOTE | 2025-01-22 15:04 | XR_ITS ---
WS: [id number] DEXA (DUAL ENERGY X-RAY ABSORPTIOMETRY) Bone mineral density was performed using a UIBLUEPRINT machine. HISTORY: OSTEOPOROSIS SCREENING COMPARISON: None available. Lumbar spine BMD (L2-L4): 0.980 T score: -1.8 Z score: -1.7 Total hip BMD: Left: 0.801 g/cm2. T score: -1.6 Z score: -1.5 Right: 0.771 g/cm2. T score: -1.9 Z score: -1.7 10 year probability of a major osteoporotic fracture is 10.9%. XR/XR DEXA axial skeleton* [id number] IMPRESSION: OSTEOPENIA based upon the WHO classification for females.
== END 2025-01-22 15:03 | disposition home or self-care (01) ==
LOC: RAD 15:02
PROVIDERS: PCP Family Medicine; Visit Provider Family Medicine
DX: Z13.820 Encounter for screening for osteoporosis (principal); M85.80 Other specified disorders of bone density and structure, unspecified site
CPT/HCPCS: 77080